=== PATIENT | male | born 1990 | race Caucasian/White ===

== ENCOUNTER 2018-09-05 13:00 | Emergency (ER) | payer SELFPAY ==
[2018-09-05] MEDS: IBUPROFEN 600 MG TAB PO (13:59)
[2018-09-05] MEDS: DIPHTH/TET/ACEL PERTUSS (ADULT) 0.5 ML VIAL IM* (14:00)
== END 2018-09-05 16:06 | disposition home or self-care (01) ==
LOC: FTE 13:00
DX: S61.412A Laceration without foreign body of left hand, initial encounter (principal); W26.8XXA Contact with other sharp object(s), not elsewhere classified, initial encounter; Y92.89 Other specified places as the place of occurrence of the external cause; Z23 Encounter for immunization
CPT/HCPCS: 12002; 90471; 90715; 99283-25